=== PATIENT | male | born 1945 | race Caucasian/White ===

== ENCOUNTER 2016-06-15 14:02 | Emergency (ER) | payer MEDICARE, OTHER ==
[2016-06-15] MEDS ORDERED: EPINEPHrine 1:10,000 1 MG/10 ML Syringe ONE ×3 (14:06)
[2016-06-15] MEDS ORDERED: Sodium Bicarbonate 8.4% 50 MEQ/50 ML Syringe ONE (14:06)
[2016-06-15 14:50] LABS: CHLORIDE,CL 108 mmol/L (98-107); SODIUM,NA 147 mmol/L (136-145)
--- NOTE | 2016-06-15 15:45 | EDM.PDOC ---
ED HPI CPR - General Chief Complaint: CPR in Progress Stated Complaint: cpr in progress Time Seen by Provider: 06/15/16 14:02 Source of Information: Reports: EMS, Family History Limitations: Reports: Other - History of Present Illness INITIAL COMMENTS - FREE TEXT/NARRATIVE: Patient's states he had returned from doing chores at one of the other farm houses and pulled up into the driveway. When he did not come in she went to check on him and found him slumped over in the truck. She did call 911 and attempted cpr, when EMS arrived he was not breathing and in a non shockable rhythm of asystole. CPR was initiated and he was brought here intubated and the GABRIELLA device delivering cpr. He had had 2 epinephrine doses administered. Symptom Onset Date: 06/15/16 Symptom Onset Time: 13:30 Witness: No Bystander CPR: Yes Downtime Before ACLS: Unknown Imaging Specialist Initial Findings: Reports: Asystole, Pulse absent, Unresponsive Pre-Arrest Complaints: Reports: unknown - Related Data Allergies/ADRs: Allergies Allergy/AdvReac Type Severity Reaction Status Date / Time No Known Allergies Allergy Verified 06/19/15 20:58 Home Meds: Home Meds Fluticasone/Salmeterol [Advair Diskus 250-50] 1 puff INH BID 08/19/14 [History] Albuterol/Ipratropium [Combivent Respimat] 20 mcg INH QID 08/20/14 [History] Cyclobenzaprine [Flexeril] 10 mg PO BID #60 tablet 08/21/14 [Rx] Past Medical History HEENT History: Reports: Allergic rhinitis, Hard of hearing Cardiovascular History: Reports: Aneurysm, CAD, Stents, Other (see below) Other Cardiovascular History: stents x3 aprox one year ago. 2014 Respiratory History: Reports: COPD, Other (see below) Other Respiratory History: Panlobular emphysema Gastrointestinal History: Reports: Diverticulosis Musculoskeletal History: Reports: Fracture, Other (see below) Other Musculoskeletal History: compression fracture of spine. - Past Surgical History Cardiovascular Surgical History: Reports: Aneurysm, Coronary artery stent, Other (see below) Other Cardiovascular Surgeries/Procedures: abdominal aortic aneurysm, graft Social & Family History - Tobacco Use Smoking Status *Q: Current Every Day Smoker Years of Tobacco use: 20 Second Hand Smoke Exposure: Yes - Alcohol Use Days Per Week of Alcohol Use: 0 - Recreational Drug Use Recreational Drug Use: No ED ROS GENERAL - Review of Systems Review Of Systems: Unable To Obtain ED EXAM, CPR - Physical Exam Exam: See Below Limited By: unresponsive General Appearance: severe distress Eye Exam: bilateral eye: abnormal pupil (non reactive), other (bilateral scleral petechiae) Respiratory Chest: other (bilateral lung sounds on respirations due to ambu bag and 7.5 ETT) Cardiovascular: pulse with compression, cpr in progress Skin Exam: Cool, Cyanosis, Mottled Course - Orders/Labs/Meds Labs: Laboratory Tests 06/15/16 06/15/16 06/15/16 Range/Units 14:12 14:12 14:12 WBC 7.7 (4.0-10.0) x10^3/uL RBC 4.85 (4.5-6.0) x10^6/uL Hgb 16.3 (14.0-18.0) g/dL Hct 51.2 (40.0-52.0) % MCV 105.6 H (78.0-93.0) fL MCH 33.6 H (26.0-32.0) pg MCHC 31.8 L (32.0-36.0) g/dL RDW Coeff of Charli 12.7 (10.0-15.0) % Plt Count 79 L (130-400) x10^3/uL Add Manual Diff Yes Neutrophils % (Manual) 36 L (50-80) % Band Neutrophils % 2 (0-6) % Lymphocytes % (Manual) 58 H (25-50) % Monocytes % (Manual) 4 (2-11) % Platelet Estimate Decreased L Anisocytosis 1+ slight H Macrocytosis 3+ marked H PT 12.9 H (10.0-12.8) SEC INR 1.1 L (2.0-3.5) APTT 33.2 (24.0-36.0) SEC Sodium 147 H (136-145) mmol/L Potassium 5.7 H (3.5-5.1) mmol/L Chloride 108 H (98-107) mmol/L Carbon Dioxide 26 (21-32) mmol/L BUN 13 (7-18) mg/dL Creatinine 1.5 H (0.70-1.30) mg/dL Est Cr Clr Drug Dosing TNP Estimated GFR (MDRD) 46 Glucose 178 H (74-106) mg/dL Lactic Acid (0.4-2.0) mmol/L Calcium 8.8 (8.5-10.1) mg/dL Corrected Calcium 9.76 (8.5-10.1) mg/dL Total Bilirubin 0.3 (0.2-1.0) mg/dL AST 26 (15-37) U/L ALT 35 (16-63) U/L Alkaline Phosphatase 101 (46-116) U/L Creatine Kinase 103 (39-308) U/L Creatine Kinase Index 2.4 (0.0-4.0) % CK-MB (CK-2) 2.5 (0.0-3.6) ng/mL POC Troponin I (0.00-0.08) ng/mL C-Reactive Protein 1.1 H (<=0.9) mg/dL B-Natriuretic Peptide 623 H (<=125) pg/mL Total Protein 5.7 L (6.4-8.2) g/dL Albumin 2.8 L (3.4-5.0) g/dL Globulin 2.9 Albumin/Globulin Ratio 0.97 POC Result Comm 06/15/16 06/15/16 Range/Units 14:12 14:28 WBC (4.0-10.0) x10^3/uL RBC (4.5-6.0) x10^6/uL Hgb (14.0-18.0) g/dL Hct (40.0-52.0) % MCV (78.0-93.0) fL MCH (26.0-32.0) pg MCHC (32.0-36.0) g/dL RDW Coeff of Charli (10.0-15.0) % Plt Count (130-400) x10^3/uL Add Manual Diff Neutrophils % (Manual) (50-80) % Band Neutrophils % (0-6) % Lymphocytes % (Manual) (25-50) % Monocytes % (Manual) (2-11) % Platelet Estimate Anisocytosis Macrocytosis PT (10.0-12.8) SEC INR (2.0-3.5) APTT (24.0-36.0) SEC Sodium (136-145) mmol/L Potassium (3.5-5.1) mmol/L Chloride (98-107) mmol/L Carbon Dioxide (21-32) mmol/L BUN (7-18) mg/dL Creatinine (0.70-1.30) mg/dL Est Cr Clr Drug Dosing Estimated GFR (MDRD) Glucose (74-106) mg/dL Lactic Acid 11.0 H (0.4-2.0) mmol/L Calcium (8.5-10.1) mg/dL Corrected Calcium (8.5-10.1) mg/dL Total Bilirubin (0.2-1.0) mg/dL AST (15-37) U/L ALT (16-63) U/L Alkaline Phosphatase (46-116) U/L Creatine Kinase (39-308) U/L Creatine Kinase Index (0.0-4.0) % CK-MB (CK-2) (0.0-3.6) ng/mL POC Troponin I 0.19 H* (0.00-0.08) ng/mL C-Reactive Protein (<=0.9) mg/dL B-Natriuretic Peptide (<=125) pg/mL Total Protein (6.4-8.2) g/dL Albumin (3.4-5.0) g/dL Globulin Albumin/Globulin Ratio POC Result Comm - Re-Assessments/Exams Free Text/Narrative Re-Assessment/Exam: 06/15/16 15:45 According to EMS, CPR initiated at the scene at approximately 1340, additional CPR performed here on arrival at 1402. Discussion held with his Roula and she did ask to discontinue life saving measures at 1715. Time of pronounced at 1418. [employer] waterproofing machine adjuster called and there will be no autopsy. Body has been released to the [facility]. 06/15/16 15:48 Departure - Departure Time of Disposition: 14:18 Disposition: 20 Preliminary Cause of *Q: Cardiac arrest Clinical Impression: Cardiac arrest Forms: ED Department Discharge
== END 2016-06-15 15:55 | disposition expired ==
LOC: VM.ED 14:02
DX: I46.9 Cardiac arrest, cause unspecified (principal); F17.210 Nicotine dependence, cigarettes, uncomplicated; I25.10 Atherosclerotic heart disease of native coronary artery without angina pectoris
CPT/HCPCS: 80053; 82550; 82553; 83605; 83880; 84484; 85025; 85610; 85730; 86140; 92950; 99283-GF; 99285; J0171